=== PATIENT | female | born 1995 | race American Indian/Alaskan Native ===

== ENCOUNTER 2021-04-16 14:43 | Emergency (ER) | payer SELFPAY ==
[2021-04-16 15:17] VITALS: BP 133/96
--- NOTE | 2021-04-16 15:31 | Emergency Department Report ---
ED Female HPI - General Chief complaint: Vaginal Bleeding Stated complaint: BLEEDING FOR 3 WEEKS/ BACK AND NECK PAIN Time Seen by Provider: 04/16/21 15:17 Source: patient Mode of arrival: Ambulatory Limitations: No Limitations - History of Present Illness Initial comments: 26-year-old female presents to the ER today with complaints of abnormal vaginal bleeding. Patient states that she has been bleeding consistently for 3 weeks. She states that when the bleeding for started she thought it was related to her normal menstrual cycle. But she states that she has continued to bleed nonstop and the bleeding is heavier than normal with passage of clots.. Back in February was normal. She is not on any form of control. She reports mild intermi ttent abdominal cramping. She has not taken a home test. She denies any UTI symptoms. She denies any significant past medical history. She states that she is never been before in the past. MD Complaint: vaginal bleeding -: week(s) (3) - Related Data Allergies Allergy/AdvReac Type Severity Reaction Status Date / Time codeine Allergy Unknown Verified 04/16/21 15:15 ED Review of Systems ROS: Stated complaint: BLEEDING FOR 3 WEEKS/ BACK AND NECK PAIN Other details as noted in HPI Comment: All other systems reviewed and negative Gastrointestinal: abdominal pain. denies: nausea, vomiting, diarrhea, constipation, hematemesis, melena, hematochezia Genitourinary: abnormal menses. denies: urgency, dysuria, frequency, hematuria, discharge, dyspareunia ED Past Medical Hx - Past Medical History Previous Medical History?: No - Surgical History Past Surgical History?: No ED Physical Exam - General Limitations: No Limitations General appearance: alert, in no apparent distress - Head Head exam: Present: atraumatic, normocephalic, normal inspection - Eye Eye exam: Present: normal appearance, PERRL, EOMI Pupils: Present: normal accommodation - ENT ENT exam: Present: normal exam, mucous membranes moist, TM's normal bilaterally - Neck Neck exam: Present: normal inspection, full ROM. Absent: meningismus - Respiratory Respiratory exam: Present: normal lung sounds bilaterally. Absent: respiratory distress, wheezes, rales, rhonchi, stridor - Cardiovascular Cardiovascular Exam: Present: regular rate, normal rhythm, normal heart sounds - GI/Abdominal GI/Abdominal exam: Present: soft. Absent: distended, tenderness, guarding, rebound - Neurological Exam Neurological exam: Present: alert, oriented X3, CN II-XII intact, normal gait - Psychiatric Psychiatric exam: Present: normal affect, normal mood - Skin Skin exam: Present: intact ED Course Vital Signs 04/16/21 15:12 Temperature 98.4 F Pulse Rate 99 H Respiratory 16 Rate Blood Pressure 133/96 [Left] O2 Sat by Pulse 99 Oximetry ED Medical Decision Making - Lab Data Result diagrams: 04/16/21 15:51 - Medical Decision Making CBC all normal including normal H&H. hCG negative. Patient currently sitting on the chair comfortably, she is not in any significant distress. She is not toxic or ill-appearing. She has a soft nontender abdomen. Her vital signs are stable. Discussed lab results with patient, recommend following up with [facility] for further assessment of abnormal bleeding. At this time there is no indication for any additional testing, admission or specialist consult. Patient expressed understanding of all instructions and agree with plan. Patient stable at time of discharge. Critical care attestation.: If time is entered above; I have spent that time in minutes in the direct care of this critically ill patient, excluding procedure time. ED Disposition Clinical Impression: Abnormal vaginal bleeding Disposition: 01 HOME / SELF CARE / HOMELESS Is pt being admited?: No Does the pt Need Aspirin: No Condition: Stable Instructions: Abnormal Uterine Bleeding Additional Instructions: I recommend following up with one of the [facility] listed on your discharge instructions for further evaluation of your abnormal bleeding. You can take Tylenol and/or ibuprofen from [id number] if your symptoms persist. Return to the ER if your symptoms changes or worsens in any way. Referrals: [facility] [Provider Group] - 3-5 Days [facility] [Provider Group] - 3-5 Days Forms: Work/School Release Form(ED) Time of Disposition: 16:58
[2021-04-16 16:19] LABS: Basophils % (Auto) 0.6 % (0.0-1.8); Eosinophils # (Auto) 0.1 K/mm3 (0.0-0.4); Hemoglobin 13.3 gm/dl (10.1-14.3); Lymphocytes # (Auto) 1.6 K/mm3 (1.2-5.4); Lymphocytes % (Auto) 31.3 % (13.4-35.0); Mean Corpuscular HGB Conc 34 % (30-34); Mean Corpuscular Volume 92 fl (79-97); Monocytes # (Auto) 0.3 K/mm3 (0.0-0.8); Monocytes % (Auto) 6.3 % (0.0-7.3); Platelet Count 285 K/mm3 (140-440); Red Blood Count 4.24 M/mm3 (3.65-5.03); Red Cell Distribution Width 15.2 % (13.2-15.2)
== END 2021-04-16 17:10 | disposition home or self-care (01) ==
LOC: ED 14:43
DX: N93.9 Abnormal uterine and vaginal bleeding, unspecified (principal); Z88.5 Allergy status to narcotic agent; Z79.899 Other long term (current) drug therapy
CPT/HCPCS: 36415; 84703; 85025; 99283